=== PATIENT | female | born 1990 ===

== ENCOUNTER 2017-12-26 09:51 | Outpatient (CLI) | payer OTHER | END 2017-12-26 09:55 | disposition home or self-care (01) | LOC: RX STUDY 09:51 | DX: N91.4 Secondary oligomenorrhea (principal) ==

== ENCOUNTER → 2020-04-19 | Outpatient (CLI) | payer OTHER | END | disposition home or self-care (01) | LOC: RX STUDY 10:56 | PROVIDERS: ATTEND Student in an Organized Health Care Education/Training Program | DX: N72 Inflammatory disease of cervix uteri (principal); N97.0 Female infertility associated with anovulation ==

== ENCOUNTER 2023-09-21 13:17 | Day surgery (SDC) | payer OTHER ==
[2023-09-20 13:50] LABS: HEMATOCRIT 29.4 % (36.0-45.00); HEMOGLOBIN 10.3 g/dL (12.0-15.00); MEAN CELL VOLUME 90.3 fL (80.00-100.00); MEAN CORPUSCULAR HEMOGLOBIN 31.6 pg (27.00-32.0); PLATELET COUNT 299 K/uL (150-450); RED BLOOD COUNT 3.25 M/uL (4.00-6.00); RED CELL DISTRIBUTION WIDTH 14.1 % (11.5-14.5)
[2023-09-20 14:21] LABS: INR 0.94; PARTIAL THROMBOPLASTIN TIME 26.4 SECONDS (22.0-34.0); PROTHROMBIN TIME 9.9 SECONDS (9.0-11.5)
[2023-09-20 14:28] LABS: ALBUMIN 2.8 gm/dL (3.4-5.0); BILIRUBIN TOTAL 0.24 mg/dL (0.3-1.2); CALCIUM 9.7 mg/dL (8.5-10.1); CREATININE SERUM 0.41 mg/dL (0.55-1.02); GFR 176.54; GLOBULINA 3.9 G/DL (2.4-3.5); POTASSIUM 4.59 mEq/L (3.5-5.1); TOTAL PROTEIN 6.7 gm/dL (6.4-8.2)
[~2023-09-21 13:17] MED LIST: ACETAMINOPHEN325 M1 PO; OBSTETRIX EC C1 EAC1 PO
[2023-09-21] MEDS ORDERED: POVIDONE-IODINE 118 ML BOTT TOP ONE ×2 (16:29→17:45)
== END 2023-09-21 22:58 | disposition home or self-care (01) ==
LOC: CIR.AMB 13:17
PROVIDERS: ATTEND Obstetrics & Gynecology Maternal & Fetal Medicine
DX: O34.32 Maternal care for cervical incompetence, second trimester (principal); Z3A.20 20 weeks gestation of pregnancy; Z88.4 Allergy status to anesthetic agent; Z91.013 Allergy to seafood

== ENCOUNTER 2023-10-10 16:31 | Inpatient (IN) | payer OTHER ==
[~2023-10-10] VITALS: Ht 152.4 cm; Wt 0.9 kg
[2023-10-10] MEDS ORDERED: RINGERS SOLUTION,LACTATED 1,000 ML IV SCH (16:45)
[2023-10-10 18:03] LABS: HEMATOCRIT 28.5 % (36.0-45.00); MEAN CELL VOLUME 90.4 fL (80.00-100.00); MEAN CORPUSCULAR HEMOGLOBIN 31.8 pg (27.00-32.0); MEAN CORPUSCULAR HGB CONC 35.2 g/dl (32.0-36.0); PLATELET COUNT 256 K/uL (150-450); RED BLOOD COUNT 3.15 M/uL (4.00-6.00); RED CELL DISTRIBUTION WIDTH 13.9 % (11.5-14.5)
[2023-10-10 18:09] LABS: INR 0.95; PARTIAL THROMBOPLASTIN TIME 25.9 SECONDS (22.0-34.0)
[2023-10-10 18:14] LABS: ALBUMIN 2.9 gm/dL (3.4-5.0); BILIRUBIN TOTAL 0.17 mg/dL (0.3-1.2); CALCIUM 9.3 mg/dL (8.5-10.1); CREATININE SERUM 0.37 mg/dL (0.55-1.02); GFR 198.74; GLOBULINA 3.8 G/DL (2.4-3.5); POTASSIUM 4.33 mEq/L (3.5-5.1); TOTAL PROTEIN 6.7 gm/dL (6.4-8.2)
[2023-10-10] MEDS ORDERED: ACETAMINOPHEN 500 MG GEL..CAP PO PRN (21:15)
[2023-10-10] MEDS ORDERED: FAMOTIDINE/PF 20 MG/2 ML VIAL IV PUSH NR (21:15)
[2023-10-11] MEDS ORDERED: ENOXAPARIN SODIUM 40 MG/0.4 ML SYRINGE SUBCUTANEO SCH (09:00)
[2023-10-11] MEDS ORDERED: PNV,CALCIUM 72/IRON/FOLIC ACID 1 TAB TABLET PO SCH (09:00)
[2023-10-11] MEDS ORDERED: NIFEDIPINE 30 MG TAB.SA.OSM PO SCH (09:00)
[2023-10-11] MEDS ORDERED: FERROUS SULFATE 325 MG TABLET.EC PO SCH (16:00)
[2023-10-12] MEDS ORDERED: MAGNESIUM HYDROXIDE 30 ML BLIST.PACK PO SCH (09:00)
[2023-10-15] MEDS ORDERED: CEFUROXIME AXETIL 500 MG TABLET PO SCH (09:00)
[2023-10-17] MEDS ORDERED: CEFUROXIME AXETIL 250 MG TABLET PO SCH (09:00)
[2023-10-18] MEDS ORDERED: CEFUROXIME AXETIL 500 MG TABLET PO SCH (09:00)
[2023-10-18] MEDS ORDERED: hydrOXYzine PAMOATE 25 MG CAPSULE PO STA (10:48)
[2023-10-18] MEDS ORDERED: METROnidazole 500 MG TABLET PO NR (12:30)
[2023-10-18] MEDS ORDERED: METROnidazole 500 MG TABLET PO SCH (21:00)
[2023-10-20 10:51] LABS: HEMATOCRIT 28.6 % (36.0-45.00); HEMOGLOBIN 9.9 g/dL (12.0-15.00); MEAN CELL VOLUME 90.9 fL (80.00-100.00); MEAN CORPUSCULAR HEMOGLOBIN 31.4 pg (27.00-32.0); MEAN CORPUSCULAR HGB CONC 34.5 g/dl (32.0-36.0); PLATELET COUNT 238 K/uL (150-450); RED BLOOD COUNT 3.14 M/uL (4.00-6.00); RED CELL DISTRIBUTION WIDTH 14.4 % (11.5-14.5)
[2023-10-22] MEDS ORDERED: FAMOtidine 20 MG TABLET PO SCH (09:00)
[2023-10-26] MEDS ORDERED: DOCUSATE SODIUM 100MG CAP PO SCH (17:00)
[2023-10-27] MEDS ORDERED: ACETAMINOPHEN 500 MG GEL..CAP PO PRN (20:45)
[2023-10-27] MEDS ORDERED: METROnidazole 70 GM GEL.W.APPL VAG SCH (21:00)
[2023-10-28] MEDS ORDERED: CETIRIZINE HCL 5 MG/5 ML ML PO SCH (17:00)
[2023-10-29] MEDS ORDERED: SOD FERRIC GLUC COMPLX/SUCROSE 125 MG in 0.9 % SODIUM CHLORIDE 100 ML IV SCH (09:00)
[2023-10-31] MEDS ORDERED: BETAMETHASONE ACETATE,SOD PHOS 30 MG/5 ML ML IM STA (19:18)
[2023-11-01] MEDS ORDERED: BETAMETHASONE ACETATE,SOD PHOS 30 MG/5 ML ML IM SCH (19:15)
[2023-11-03 15:39] LABS: HEMATOCRIT 27.5 % (36.0-45.00); HEMOGLOBIN 9.4 g/dL (12.0-15.00); MEAN CELL VOLUME 91.7 fL (80.00-100.00); MEAN CORPUSCULAR HEMOGLOBIN 31.3 pg (27.00-32.0); MEAN CORPUSCULAR HGB CONC 34.2 g/dl (32.0-36.0); PLATELET COUNT 199 K/uL (150-450); RED CELL DISTRIBUTION WIDTH 16.6 % (11.5-14.5)
[2023-11-03 16:04] LABS: ALBUMIN 2.6 gm/dL (3.4-5.0); BILIRUBIN TOTAL 0.12 mg/dL (0.3-1.2); CALCIUM 8.6 mg/dL (8.5-10.1); CREATININE SERUM 0.48 mg/dL (0.55-1.02); GFR 147.18; GLOBULINA 3.4 G/DL (2.4-3.5); POTASSIUM 3.75 mEq/L (3.5-5.1)
[2023-11-03 17:49] LABS: PH,URINE 7.5 (5.0-8.0); URINE APPEARANCE Clear; URINE BILIRRUBIN Negative (NEGATIVE); URINE BLOOD Trace; URINE COLOR Yellow; URINE GLUCOSE Negative (NEGATIVE); URINE KETONE Negative (NEGATIVE); URINE LEUKOCYTE Trace; URINE NITRATE Negative; URINE PROTEIN Negative (NEGATIVE); URINE UROBILINOGEN 0.2 E.U./dl
[2023-11-03 17:54] LABS: URINE BACTERIA 100.7 uL (0.0-1933); URINE EPITHELIAL CELLS 3.3 uL (0.0-38.8); URINE RBC 13.1 uL (0.0-20.8); URINE WBC 3.4 uL (0.0-23.2)
[2023-11-03 20:31] LABS: INR < 0.93; PARTIAL THROMBOPLASTIN TIME 27.9 SECONDS (22.0-34.0); PROTHROMBIN TIME 9.7 SECONDS (9.0-11.5)
[2023-11-04] MEDS ORDERED: IRON FUM,PS/FOLIC/BCOMP,C NO.9 1 CAP CAPSULE PO SCH (17:00)
[2023-11-06] MEDS ORDERED: FERROUS SULFATE 325 MG TABLET.EC PO SCH (09:00)
[2023-11-08] MEDS ORDERED: NIFEDIPINE 30 MG TAB.SA.OSM PO SCH (09:00)
[2023-11-09] MEDS ORDERED: ACETAMINOPHEN 500 MG GEL..CAP PO PRN (17:45)
[2023-11-10] MEDS ORDERED: CETIRIZINE HCL 5MG/5ML BLIST.PACK PO SCH (16:35)
[2023-11-13 11:10] LABS: HEMATOCRIT 33.3 % (36.0-45.00); HEMOGLOBIN 11.5 g/dL (12.0-15.00); MEAN CELL VOLUME 93.4 fL (80.00-100.00); MEAN CORPUSCULAR HEMOGLOBIN 32.1 pg (27.00-32.0); MEAN CORPUSCULAR HGB CONC 34.4 g/dl (32.0-36.0); PLATELET COUNT 223 K/uL (150-450); RED BLOOD COUNT 3.57 M/uL (4.00-6.00); RED CELL DISTRIBUTION WIDTH 16.8 % (11.5-14.5)
[2023-11-19] MEDS ORDERED: BETAMETHASONE ACETATE,SOD PHOS 30 MG/5 ML ML IM STA (12:07)
[2023-11-19] MEDS ORDERED: MAGNESIUM SULFATE IN WATER 4 GM/100 ML PIGGYBACK IV NR (12:15)
[2023-11-19] MEDS ORDERED: MAGNESIUM SULFATE IN WATER 500 ML IV SCH (12:15)
[2023-11-19] MEDS ORDERED: BETAMETHASONE ACETATE,SOD PHOS 30 MG/5 ML ML ONE (12:20)
[2023-11-19] MEDS ORDERED: MAGNESIUM SULFATE IN WATER 4 GM/100 ML PIGGYBACK IV ONE (12:22)
[2023-11-19] MEDS ORDERED: MAGNESIUM SULFATE IN WATER 0.04 GM/ML IV.SOLN IV ONE (12:23)
[2023-11-19] MEDS ORDERED: CEFOXITIN SODIUM 2,000 MG VIAL IV ONE (12:23)
[2023-11-19] MEDS ORDERED: CITRIC ACID/SODIUM CITRATE 30 ML BLIST.PACK PO STA (12:30)
[2023-11-19] MEDS ORDERED: CEFOXITIN SODIUM 2,000 MG VIAL IV STA (12:30)
[2023-11-19 13:15] LABS: HEMATOCRIT 32.5 % (36.0-45.00); HEMOGLOBIN 11.1 g/dL (12.0-15.00); MEAN CELL VOLUME 93.5 fL (80.00-100.00); MEAN CORPUSCULAR HEMOGLOBIN 31.9 pg (27.00-32.0); MEAN CORPUSCULAR HGB CONC 34.1 g/dl (32.0-36.0); PLATELET COUNT 195 K/uL (150-450); RED BLOOD COUNT 3.48 M/uL (4.00-6.00); RED CELL DISTRIBUTION WIDTH 16.8 % (11.5-14.5)
[2023-11-19 13:41] LABS: INR 0.94; PARTIAL THROMBOPLASTIN TIME 29.3 SECONDS (22.0-34.0); PROTHROMBIN TIME 10.3 SECONDS (9.0-11.5)
[2023-11-19] MEDS ORDERED: OXYTOCIN 10 UNITS/ML VIAL ONE ×2 (16:04→20:41)
[2023-11-19] MEDS ORDERED: ERYTHROMYCIN BASE 1 GM TUBE OP ONE ×2 (16:04→17:15)
[2023-11-19] MEDS ORDERED: OXYTOCIN 10 UNITS/ML VIAL IV ONE ×2 (16:30→17:15)
[2023-11-19] MEDS ORDERED: METHYLERGONOVINE MALEATE 0.2 MG/ML AMPUL ONE (17:05)
[2023-11-19] MEDS ORDERED: METHYLERGONOVINE MALEATE 0.2 MG/ML AMPUL IJ ONE (17:15)
[2023-11-19] MEDS ORDERED: RINGERS SOLUTION,LACTATED 1,000 ML IV SCH (17:40)
[2023-11-19] MEDS ORDERED: MORPHINE SULFATE 4 MG/ML VIAL IV ONE ×2 (18:25→18:55)
[2023-11-19] MEDS ORDERED: KETOROLAC TROMETHAMINE 30 MG VIAL IM NR (18:45)
[2023-11-19] MEDS ORDERED: MEPERIDINE HCL/PF 25 MG/ML VIAL IM PRN (19:00)
[2023-11-19] MEDS ORDERED: PROMETHAZINE HCL 25 MG/ML AMPUL IM PRN (19:00)
[2023-11-19] MEDS ORDERED: OXYTOCIN 20 UNITS in RINGERS SOLUTION,LACTATED 1,000 ML IV SCH (19:00)
[2023-11-19] MEDS ORDERED: KETOROLAC TROMETHAMINE 30 MG VIAL ONE (19:23)
[2023-11-19] MEDS ORDERED: PROMETHAZINE HCL 25 MG/ML AMPUL ONE (19:41)
[2023-11-19] MEDS ORDERED: CEFAZOLIN SODIUM 1,000 MG VIAL IV SCH (21:00)
[2023-11-19 22:24] LABS: HEMATOCRIT 35.1 % (36.0-45.00); HEMOGLOBIN 12.1 g/dL (12.0-15.00); MEAN CELL VOLUME 93.3 fL (80.00-100.00); MEAN CORPUSCULAR HEMOGLOBIN 32.2 pg (27.00-32.0); MEAN CORPUSCULAR HGB CONC 34.5 g/dl (32.0-36.0); PLATELET COUNT 198 K/uL (150-450); RED BLOOD COUNT 3.76 M/uL (4.00-6.00); RED CELL DISTRIBUTION WIDTH 16.2 % (11.5-14.5)
[2023-11-20] MEDS ORDERED: KETOROLAC TROMETHAMINE 10 MG TABLET PO SCH
[2023-11-20] MEDS ORDERED: SIMETHICONE 125 MG CAPSULE PO SCH (01:00)
[2023-11-20 06:44] LABS: HEMATOCRIT 31.3 % (36.0-45.00); HEMOGLOBIN 10.8 g/dL (12.0-15.00); MEAN CELL VOLUME 93.4 fL (80.00-100.00); MEAN CORPUSCULAR HEMOGLOBIN 32.2 pg (27.00-32.0); MEAN CORPUSCULAR HGB CONC 34.5 g/dl (32.0-36.0); PLATELET COUNT 189 K/uL (150-450); RED BLOOD COUNT 3.35 M/uL (4.00-6.00); RED CELL DISTRIBUTION WIDTH 16.8 % (11.5-14.5)
[2023-11-20] MEDS ORDERED: OxyCODONE HCL/APAP UD (PERCOCET) PO SCH (09:00)
[2023-11-20] MEDS ORDERED: ENOXAPARIN SODIUM 40 MG/0.4 ML SYRINGE SUBCUTANEO SCH (09:00)
[2023-11-22] MEDS ORDERED: KETO10TA2 PO (07:48)
[2023-11-22] MEDS ORDERED: OXYC1TAB9 PO (07:48)
== END 2023-11-22 18:02 | disposition home or self-care (01) | DRG 786 ==
LOC: OB/GYN 16:31 → LDR 16:31 → OB/GYN 10-11 08:31
PROVIDERS: Obstetrics & Gynecology; Obstetrics & Gynecology Gynecology; ADMIT Obstetrics & Gynecology Maternal & Fetal Medicine; ATTEND Obstetrics & Gynecology Maternal & Fetal Medicine
PROC: 4A1HXCZ Monitoring of Products of Conception, Cardiac Rate, External Approach (ICD-10-PCS; 2023-10-10)
PROC: BY4CZZZ Ultrasonography of Second Trimester, Single Fetus (ICD-10-PCS; 2023-10-12)
PROC: BU4CZZZ Ultrasonography of Uterus and Ovaries (ICD-10-PCS; 2023-10-12)
PROC: BU4CZZZ Ultrasonography of Uterus and Ovaries (ICD-10-PCS; 2023-10-16)
PROC: BU4CZZZ Ultrasonography of Uterus and Ovaries (ICD-10-PCS; 2023-10-16)
PROC: BY4CZZZ Ultrasonography of Second Trimester, Single Fetus (ICD-10-PCS; 2023-10-18)
PROC: BU4CZZZ Ultrasonography of Uterus and Ovaries (ICD-10-PCS; 2023-10-18)
PROC: BY4CZZZ Ultrasonography of Second Trimester, Single Fetus (ICD-10-PCS; 2023-10-19)
PROC: BU4CZZZ Ultrasonography of Uterus and Ovaries (ICD-10-PCS; 2023-10-19)
PROC: 3E0P7VZ Introduction of Hormone into Female Reproductive, Via Natural or Artificial Opening (ICD-10-PCS; 2023-10-27)
PROC: BY4CZZZ Ultrasonography of Second Trimester, Single Fetus (ICD-10-PCS; 2023-11-13)
PROC: BY4FZZZ Ultrasonography of Third Trimester, Single Fetus (ICD-10-PCS; 2023-11-18)
PROC: BU4CZZZ Ultrasonography of Uterus and Ovaries (ICD-10-PCS; 2023-11-18)
PROC: 3E033VJ Introduction of Other Hormone into Peripheral Vein, Percutaneous Approach (ICD-10-PCS; 2023-11-19)
PROC: BY4FZZZ Ultrasonography of Third Trimester, Single Fetus (ICD-10-PCS; 2023-11-19)
PROC: BU4CZZZ Ultrasonography of Uterus and Ovaries (ICD-10-PCS; 2023-11-19)
PROC: 10D00Z1 Extraction of Products of Conception, Low, Open Approach (ICD-10-PCS; principal; 2023-11-19 17:00)
DX: O32.1XX0 Maternal care for breech presentation, not applicable or unspecified (principal); O34.32 Maternal care for cervical incompetence, second trimester; O41.1230 Chorioamnionitis, third trimester, not applicable or unspecified; O60.13X0 Preterm labor second trimester with preterm delivery third trimester, not applicable or unspecified; O34.33 Maternal care for cervical incompetence, third trimester; O41.03X0 Oligohydramnios, third trimester, not applicable or unspecified; O26.872 Cervical shortening, second trimester; O36.8120 Decreased fetal movements, second trimester, not applicable or unspecified; O26.842 Uterine size-date discrepancy, second trimester; O36.8130 Decreased fetal movements, third trimester, not applicable or unspecified; O26.843 Uterine size-date discrepancy, third trimester; Z3A.28 28 weeks gestation of pregnancy; Z3A.22 22 weeks gestation of pregnancy; Z37.0 Single live birth; Z20.822 Contact with and (suspected) exposure to COVID-19